=== PATIENT | female | born 1970 | race Caucasian/White ===

== ENCOUNTER 2019-11-09 09:11 | Outpatient (CLI) | payer BC, SELFPAY ==
--- NOTE | ~2019-11-09 | MM_ITS ---
EXAMINATION: MM screening [facility] BI w beau HISTORY: Screening mammogram TECHNIQUE: Craniocaudal and mediolateral oblique 3-D tomosynthesis images were obtained and synthetic 2-D images were generated. CAD analysis was submitted and interpreted. COMPARISON: No prior mammogram is available for comparison at this institution. BREAST PARENCHYMAL COMPOSITION: There are scattered areas of fibroglandular density. FINDINGS: There is no evidence of suspicious mass, calcification, or architectural distortion to sugg est malignancy in either breast. There has been no suspicious interval change. IMPRESSION: 1. No mammographic evidence of malignancy. 2. Recommend routine screening mammography in one year. BI-RADS Category 1: Negative Reviewed, dictated and finalized at location B.
== END 2019-11-09 09:12 | disposition home or self-care (01) ==
PROVIDERS: PCP Physician Assistant; Visit Provider Physician Assistant
DX: Z12.31 Encounter for screening mammogram for malignant neoplasm of breast (principal)
CPT/HCPCS: 77063; 77067

== ENCOUNTER 2021-04-07 07:01 | Outpatient (CLI) | payer BC, SELFPAY ==
--- NOTE | ~2021-04-07 | MM_ITS ---
EXAMINATION: MM screening [facility] BI w beau HISTORY: Screening mammogram TECHNIQUE: Craniocaudal and mediolateral oblique 3-D tomosynthesis images were obtained and synthetic 2-D images were generated. CAD analysis was submitted and interpreted. COMPARISON: 11/09/2019 BREAST PARENCHYMAL COMPOSITION: There are scattered areas of fibroglandular density. FINDINGS: There is no evidence of suspicious mass, calcification, or architectural distortion to sugg est malignancy in either breast. There has been no suspicious interval change. IMPRESSION: 1. No mammographic evidence of malignancy. 2. Recommend routine screening mammography in one year. BI-RADS Category 1: Negative Reviewed, dictated and finalized at location A. STIC DIRECTOR
== END 2021-04-07 07:02 | disposition home or self-care (01) ==
LOC: CHSIMG 07:02
PROVIDERS: PCP Physician Assistant; Visit Provider Surgery Plastic and Reconstructive Surgery
DX: Z12.31 Encounter for screening mammogram for malignant neoplasm of breast (principal)
CPT/HCPCS: 77063; 77067

== ENCOUNTER → 2021-05-09 00:44 | Outpatient (CLI) | payer BC, SELFPAY ==
[2021-05-09 11:57] LABS: SARS-CoV-2 RNA PCR Negative
== END ==
PROVIDERS: PCP Physician Assistant; Visit Provider Surgery Plastic and Reconstructive Surgery
DX: Z01.812 Encounter for preprocedural laboratory examination (principal); Z20.822 Contact with and (suspected) exposure to COVID-19
CPT/HCPCS: C9803; U0003; U0005

== ENCOUNTER 2021-05-12 00:18 | Day surgery (SDC) | payer BC, SELFPAY ==
[2021-05-01 13:53] VITALS: BMI 24.3
--- NOTE | 2021-05-01 14:09 | PC.NURSE ---
Report to the Outpatient Waiting Room, entrance under the green pavilion located off [facility], at time 1100 on date 05/12/21. OR Time: 1300. - You and your visitor will be asked a series of questions to screen for COVID 19 for your protection. - A mask is required within the hospital. One visitor will be allowed to accompany the patient into the hospital. Patients visitor will be instructed to remain with patient at all times or leave the building. We will allow the visitor to come back to the postoperative area when patient is ready. Preoperative COVID Testing Requirements: COVID TEST 05/09 AT 0900 No COVID Test needed if: (proof is required; if not received patient will have Rapid Test prior to entry) - Patient has received COVID Vaccine at least 14 days prior to procedure date or - Patient has positive COVID test result within last 90 days of surgery date. COVID Test needed if above criteria is not met If not COVID vaccinated a COVID test must be conducted within 72 hours of surgery and patient is asked to isolate self from time of testing until procedure. You will go to the [facility] for your COVID testing. The [facility] is located at the corner of [address] [facility]. You will only be called if COVID results are positive and your surgeon may reschedule your elective surgery date. Patients may have clear liquids (water, carbonated beverages, clear teas, apple juice) until 3 hours prior to surgery with a maximum of 20 ounces. - No food from midnight until time of surgery Take the following medications with a SIP of water the morning of surgery: NONE Medications to discontinue per physician: VITAMINS/SUPPLEMENTS Date to take last dose: 05/08/21 Please no make-up, nail hungarian, hairspray, perfume, deodorant, or body powder the day of surgery. No jewelry (including any body piercings) or valuables the day of surgery, leave them at home. Please take a shower or bath the night before, or the morning of, surgery with an antibacterial soap. Wear comfortable, loose fitting clothing. Children are encouraged to wear pajamas. - Jewelry must be removed prior to entering the operating room. Rings and piercings that are not removed may be cut off. - The hospital will not accept responsibility for valuables. - Please leave all valuables, including medications, at home the day of surgery. If you are going home after surgery, a licensed milk delivery driver must drive you home. - NO public transportation without another adult. - We recommend that an adult stay with you for 24 hours following discharge. - We also recommend that you do not drive, make important decision, drink alcoholic beverages, or take any drugs that were not prescribed by your health care provider for at least 24 hours after your discharge time. Follow any additional instructions given to you from your surgeon. Telephone instructions given to MILTON DO and asked if any additional questions and then verbalized understanding. Patient advised to call surgeon office or pre surgery nurse liaison [phone] if any additional questions.
[2021-05-12] VITALS (8 sets, daily range): BP systolic 118–140; BP diastolic 67–79; PULSE 58–72; RESP 12–20; TEMP 36.3–36.7; O2SAT 97–100
[2021-05-12 11:42] LABS: Urine Cotinine NEGATIVE
[2021-05-12] MEDS: LACTATED RINGERS 1,000 ML 30 ML IV CONT ×2 (11:43→15:07)
--- NOTE | 2021-05-12 11:45 | WPDANESEPPF ---
Anes - Initial Pre Proc Eval Procedure: Operation Date: 05/12/21 13:00 Proposed Procedures p Bilateral Breast Reduction - Edwardo Rangel MD Date/Time: 05/12/21 11:45 Surgeon: Edwardo Rangel MD Pre Op Diagnosis: macromastia Patient Data Age: 50 Gender: F Height: 1.7 m Weight: 70.31 kg Allergies Allergy/AdvReac Type Severity Reaction Status Date / Time No Known Allergies Allergy Unknown Unverified 05/01/21 13:51 Home Medications Medication Instructions Recorded Confirmed Type cetirizine [Zyrtec] 10 mg PO DAILY 05/01/21 05/01/21 History fluoxetine 20 mg PO HS 05/01/21 05/01/21 History hydrochlorothiazide 12.5 mg PO DAILY 05/01/21 05/01/21 History lactobacillus combo no.11 1 cap PO DAILY 05/01/21 05/01/21 History [Probiotic] vitamin B complex [Complex B-100] 1 tablet PO DAILY 05/01/21 05/01/21 History docusate sodium 100 mg capsule 100 mg PO DAILY #14 cap 05/05/21 Rx hydrocodone 5 mg-acetaminophen 325 1 tablet PO Q6H PRN #30 tablet 05/05/21 05/05/21 Rx mg tablet ondansetron 4 mg disintegrating 4 mg PO Q8H #21 tablet 05/05/21 Rx tablet Laboratory Tests 05/12/21 11:12 Cotinine Negative Patient hx anesthesia problems: none Family hx anesthesia problems: none Results Review: All pre-operative results and documents have been reviewed as part of the pre-operative evaluation. [facility] Past Medical History Medical History Anxiety Headache, migraine Social History Social History Smoking status: Never smoker Alcohol intake: current Alcohol use details: 3/MONTH Substance use: never Substance use type: does not use Living arrangements: with family Additional living arrangements comments: DAUGHTER Spiritual care concerns: No Anes - Eval Final PreProcedure Day of Procedure 05/12/21 11:45 Patient weight: normal Heart: regular rate and rhythm Lungs: clear to auscultation Airway: Mallampati scale class II Neurological: alert and oriented Last oral intake: >/= 8 hours ASA classification: II Emergent: no Anesthetic plan: proceed Anesthesia type and monitoring: general LMA and standard monitoring Results Review: All pre-operative results and documents have been reviewed as part of the pre-operative evaluation. Informed Consent: The patient's anesthetic plan and its attendant risks and benefits were discussed with the patient/family/POA. Questions were solicited and answers provided to the satisfaction of the patient/family/POA.
[2021-05-12] MEDS: TRANEXAMIC ACID 1,000MG/ISO100 1,000 MG/100 ML BAG 200 MG IVPB (12:14)
--- NOTE | 2021-05-12 12:37 | P.OP_ITS ---
Procedure Note - Detailed Date of Procedure 05/12/21 Pre-op Diagnosis macromastia Post-op Diagnosis Same Procedure Performed Bilateral reduction mammaplasty Surgeon Edwardo Rangel MD Anesthesia General Findings Inverted T Superior medial pedicle Tissue removed: Right: 654 grams Left 690 grams Description of Procedure She is here today for bilateral breast reduction. Previously and again today the risks, benefits, alternatives were discussed in extensive detail. I wanted her to be very realistic about the risks involved as well as expectations. We discussed aftercare and what to monitor for. She understands we can never guarantee final breast size and there will always be asymmetry. I was very upfront and honest about the risks of sensation change and even nipple loss (). Made sure answered all of her questions to her satisfaction today and consent was obtained. She was marked in the preoperative holding area with their verification. The patient was taken to the operating room placed supine on the operating table. Anesthesia was provided by anesthesiology. She was prepped and draped in a standard sterile fashion. A surgical time-out was taken. Stab incisions were made and I tumessed with a tumescent solution. I marked out the nipple-areolar complex at 42 mm. I then de-epithelialized the pedicle. The pedicle was well left well more than 2 cm in thickness. I then removed the inferior portion of the breast as well as the central keel to get shape based on preoperative planning. At this point copiously irrigated with saline solution and verified a strict hemostasis. I reapproximated the pillars using a 2-0 PDS. I tailor tacked the breast into place with jai. She was placed in a sitting position. I verified the nipple-areolar complex position based on preoperative markings, intraoperative measurements, and observation which were in full agreement. This nipple-areolar complex was marked at 42 mm in size. I then placed supine and de-epithelialized this. Nipple-areolar complex was inset with 3-0 Monocryl. I closed IMF deep with 1 strattafix. I closed the vertical incision with 3-0 Monocryl in the IMF with 3- 0 stratafix. Then everything was closed using a running subcuticular 4-0 Monocryl followed by Steri-Strips. A dressing was placed followed by surgical bra. Patient was awoke and taken to PACU without difficulty. All instrument sponge counts were correct at the end of the case. Estimated Blood Loss 50 Drains No Packing No Pathology Yes (Bilateral breast tissue) Complications No immediate complications Condition Stable Disposition PACU
--- NOTE | 2021-05-12 12:57 | WPDHPUPDATE1 ---
History and Physical Update Update Date/Time: 05/12/21 12:57 History and Physical has been reviewed, including an updated exam of the patient. There are NO changes in the patient's condition. Risks, benefits, and alternatives have been discussed and questions answered. Patient agrees to proceed with procedure.
[2021-05-12] MEDS: ceFAZolin 2 GM/D5W 50 ML 2 GM/50 ML BAG IVPB (13:03)
[2021-05-12] MEDS: LACTATED RINGERS IRRIG 1,000 ML, LIDOCAINE HCL 1% LOCAL INJ 50 ML, EPINEPHrine HCL INJ ... INFILTRATE (13:21)
--- NOTE | 2021-05-12 15:09 | SUR.OPER ---
left inner ear earring intact to PACU.
[2021-05-12] MEDS: fentaNYL CITRATE INJ (*CRX) 100 MCG/2 ML VIAL 25 MCG IV PUSH ×2 (15:22→15:26)
[2021-05-12] MEDS: oxyCODONE HCL (*CRX) 5 MG TAB IR PO (16:07)
== END 2021-05-12 16:47 | disposition home or self-care (01) ==
PROVIDERS: PCP Physician Assistant; Visit Provider Surgery Plastic and Reconstructive Surgery
PROC: 0HBV0ZZ Excision of Bilateral Breast, Open Approach (ICD-10-PCS; CPT 19318; principal; 2021-05-12 13:00)
DX: N62 Hypertrophy of breast (principal); F41.9 Anxiety disorder, unspecified; Z82.49 Family history of ischemic heart disease and other diseases of the circulatory system; M54.9 Dorsalgia, unspecified; M54.2 Cervicalgia; M25.511 Pain in right shoulder; L98.9 Disorder of the skin and subcutaneous tissue, unspecified; N64.4 Mastodynia; G43.909 Migraine, unspecified, not intractable, without status migrainosus
CPT/HCPCS: 19318; 80307; 88305; A9270; J0171; J0690; J1100; J1170; J2250; J2405; J2704; J3010; J7120

== ENCOUNTER 2022-11-11 08:08 | Outpatient (CLI) | payer BC, SELFPAY ==
--- NOTE | ~2022-11-11 | MM_ITS ---
EXAMINATION: MM screening [facility] HISTORY: Screening mammogram TECHNIQUE: Craniocaudal and mediolateral oblique 3-D tomosynthesis images were obtained and synthetic 2-D images were generated. CAD analysis was submitted and interpreted. COMPARISON: 04/07/2021, 11/09/2019 BREAST PARENCHYMAL COMPOSITION: The breasts are almost entirely fatty. FINDINGS: There has been interval reduction mammoplasty. No suspicious mass, calcification, or helena ectural distortion are identified in either breast to suggest malignancy. There has been no suspiciou s interval change. IMPRESSION: 1. No mammographic evidence of malignancy. 2. Recommend routine screening mammography in one year. BI-RADS Category 1: Negative Reviewed, dictated and finalized at location A.
== END 2022-11-11 08:09 | disposition home or self-care (01) ==
LOC: CHSIMG 08:10
PROVIDERS: PCP Physician Assistant; Visit Provider Physician Assistant
DX: Z12.31 Encounter for screening mammogram for malignant neoplasm of breast (principal)
CPT/HCPCS: 77063; 77067

== ENCOUNTER 2024-06-15 09:00 | Outpatient (CLI) | payer BC, SELFPAY ==
--- NOTE | ~2024-06-15 | MM_ITS ---
EXAMINATION: MM diagnostic belle BI w beau HISTORY: Breast pain TECHNIQUE: Additional 3-D tomosynthesis images of the breasts were performed and synthetic 2-D images were generated. CAD analysis was submitted and interpreted. COMPARISON: Comparison to multiple prior studies sequentially, with oldest reviewed study dated 03/2019. BREAST PARENCHYMAL COMPOSITION: Not dense: There are scattered areas of fibroglandular density. FINDINGS: The breasts are stable. No new masses, calcifications or architectural distortion in either breast to suggest malignancy . IMPRESSION: 1. No mammographic evidence for malignancy in either breast. 2. Routine yearly screening mammogram and regular clinical breast examination are recommended. BI-RADS Category 1: Negative Reviewed, dictated and finalized at location A. IMPRESSION: 1. No mammographic evidence for malignancy in either breast. 2. Routine yearly screening mammogram and regular clinical breast examination a re recommended. BI-RADS Category 1: Negative
--- OUTSIDE RECORDS SUMMARY | 2024-06-15 09:08 | XMS_ITS | Clinical Summary ---
Author Organization [facility] Address [address] [place] [address] Care Team Providers Care Night Coordinator Name Role Phone Fiona Gerardo Primary Care Pr ovider Source Comments [facility],non-owned Affiliates and Associated Physician Practices is amultiple site organization consisting of ambulatory clinics and hospital sitesin [place], [place], [place] and [place]. This disclosure is being madepursuant to the Care Everywhere program and may not contain all information available regarding this patient. 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 Gender Identity Not on file Sexual Orientation Not on file Plan of Treatment Health Maintenance Due Date Last Done Comments COLOGUARD (AGES 45-75) - COL ON CA SCREENING 1970 COLON MONITORING 1970 COLONOSCOPY - COLON CA SCREENING 1970 CT COLONOGRAPHY - COLON CA SCREENING 1970 Colorectal Cancer Screening 1970 FIT - COLON CA SCREENING 1970 FLEX SIG - COLON CA SCREENING 1970 LIPID TESTING 1970 MAMMOGRAM 1970 HIV SCREENING 1985 HEPATITIS C SCREENING 09/05/1988 DTAP/TDAP/TD VACCINES (1 - Tdap) 1989 HEPATITIS B VACCINE (1 of 3 - 19+ 3-dose series) 1989 PNEUMOCOCCAL VACCINE 50+ (1 of 1 - PCV) 2020 ZOSTER VACCINE (1 of 2) 2020 COVID-19 VACCINE (2023-2 5 season) 2023 DEPRESSION SCREENING 02/08/2024 INFLUENZA VACCINE (Season Ended) 2024 HIB VACCINE Aged Out No longer eligi ble based on patient's age to complete this topic HPV VACCINE Aged Out No longer eligi ble based on patient's age to complete this topic MENINGOCOCCAL (Group B) VACC INE SHARED DECISION-MAKING Aged Out No longer eligibl e based on patient's age to complete this topic MENINGOCOCCAL GROUPS A/C/Y/W VACCINE Aged Out No longer eligible b ased on patient's age to complete this topic Care Teams Night Coordinator Relationship Specialty Start Date End Date Fiona Gerardo PA [address] [place] [id number] PCP - General 05/15/21
--- OUTSIDE RECORDS SUMMARY | 2024-06-15 09:08 | XMS_ITS | Data Portability ---
Author Organization [facility], Main Office Address [address] [place] [address] Assessment No assessment recorded. Plan of Treatment Reminders Order Date Submit Date Provider Last Modified By Organization Details Last Modified Time Details Appointments None recorded. Lab lipid panel, serum 2022 023 SUJIT Not available 3 06:17:05 CBC w/ auto diff 2022 023 SUJIT Not available 3 06:17:08 CMP, serum or plasma 2022 023 SUJIT Not available 3 06:17:06 TSH + free T4, serum 2022 023 [email or web address] Not available 4 09:41:09 vitamin B12 + folate, serum or blood 2022 023 SUJIT Not available 3 06:17:09 HbA1c (hemoglobin A1c), blood 2022 023 SUJIT Not available 3 06:17:07 Referral None recorded. Procedures colonoscopy screening (PROC) 2022 023 [email or web address] [facility] Gastroenterol [facility]gy, [address], [address], [address], 4 09:41:16 Surgeries None recorded. Imaging MAMMO, screening, digital, bilateral 2022 023 [facility] (Imaging), [address] [place] [address], [address], 3 13:49:55 Medication Orders None recorded. Patient TargetsNo targets recorded. Patient InstructionsNo instructions recorded. Reason for Referral None Reported. Results Created Date Observation Date Name Description Value Unit Range Abnormal Flag Note LastModifiedBy Organization Detail LastModifiedTime 01/29/2001/29/2023 LIPID PANEL , STAND CHAD cholesterol, total 178 mg/dL <200 normal Not Available [facility] [address] [address] [place], [address], 01/29/2023 06:17:05 01/29/2001/29/2023 LIPID PANEL , STAND CHAD HDL cholesterol 51 mg/dL > or = 50 normal Not Available [facility] [address] [address] [place], [address], 01/29/2023 06:17:05 01/29/2001/29/2023 LIPID PANEL , STAND CHAD triglyceride s 82 mg/dL <150 normal Not Available [facility] [address] [address] [place], [address], 01/29/2023 06:17:05 01/29/20 23 01/29/2023 LIPID PANEL , STAND CHAD LDL-choleste rol 110 mg/dL _(julia c) high Refer ence range : <100 Sulaiman able range <100 mg/dL for prima ry preve ntion ; <70 mg/dL for patie nts with CHD or diabe tic patie nts with > or = 2 CHD risk facto rs. LDL-C is now calcu lated using the Glendy n-Hop kins shaheen roberson n, which is a valid ated novel mike knox accur acy than the Fried rani equat ion in the estim ation of LDL-C . Glendy macdonald SS et al. ASHLEY. 2013; 310(1 9): 2061- 2068 (http ://ed ucati on.Qu Holly [employer] tics. com/f aq/FA Q164) Not Available [facility] [address] [place], [address], 01/29/2023 06:17:05 01/29/20 23 01/29/2023 LIPID PANEL , STAND CHAD chol/HDLC ratio 3.5 (calc ) <5.0 normal Not Available [address] [address] [place], [address], 01/29/2023 06:17:05 01/29/2001/29/2023 LIPID PANEL , STAND CHAD non HDL cholesterol 127 mg/dL _(julia c) <130 normal For patie nts with diabe keenan plus 1 major ASCVD risk facto r, treat ing to a non-H DL-C goal of <100 mg/dL (LDL- C of <70 mg/dL ) is consi dered a thera peuti c optio n. Not Available [address] [address] [place], [address], 01/29/2023 06:17:05 01/29/2001/29/2023 COMPR EHENS HARRISON METAB OLIC PANEL glucose 91 mg/dL 65-99 normal Fasti ng refer ence inter saadia Not Available [address] [address] [place], [address], 01/29/2023 06:17:06 01/29/2001/29/2023 COMPR EHENS HARRISON METAB OLIC PANEL urea nitrogen (BUN) 14 mg/dL 7-25 normal Not Available [address] [address] [place], [address], 01/29/2023 06:17:06 01/29/2001/29/2023 COMPR EHENS HARRISON METAB OLIC PANEL creatinine 0.74 mg/dL 0.50-1 .03 normal Not Available [address] [address] [place], [address], 01/29/2023 06:17:06 01/29/2001/29/2023 COMPR EHENS HARRISON METAB OLIC PANEL eGFR 97 mL/mi n/1.7 3m2 > or = 60 normal Not Available [address] [address] [place], [address], 01/29/2023 06:17:06 01/29/20 23 01/29/2023 COMPR EHENS HARRISON METAB OLIC PANEL BUN/creatini ne ratio SEE NOTE: (calc ) 6-22 Not Repor gio: BUN and Creat inine are withi n refer ence range . Not Available [address] [address] [place], [address], 01/29/2023 06:17:06 01/29/20 23 01/29/2023 COMPR EHENS HARRISON METAB OLIC PANEL sodium 140 mmol/ L 135-14 6 normal Not Available [address] [address] [place], [address], 01/29/2023 06:17:06 01/29/2001/29/2023 COMPR EHENS HARRISON METAB OLIC PANEL potassium 4.4 mmol/ L 3.5-5. 3 normal Not Available [address] [address] [place], [address], 01/29/2023 06:17:06 01/29/20 23 01/29/2023 COMPR EHENS HARRISON METAB OLIC PANEL chloride 107 mmol/ L 98-110 normal Not Available [address], [address], 01/29/2023 06:17:06 01/29/20 23 01/29/2023 COMPR EHENS HARRISON METAB OLIC PANEL carbon dioxide 25 mmol/ L 20-32 normal Not Available [address] [address] [place], [address], 01/29/2023 06:17:06 01/29/20 23 01/29/2023 COMPR EHENS HARRISON METAB OLIC PANEL calcium 8.9 mg/dL 8.6-10 .4 normal Not Available [address] [address] [place], [address], 01/29/2023 06:17:06 01/29/20 23 01/29/2023 COMPR EHENS HARRISON METAB OLIC PANEL protein, total 6.5 g/dL 6.1-8. 1 normal Not Available [address] [address] [place], [address], 01/29/2023 06:17:06 01/29/20 23 01/29/2023 COMPR EHENS HARRISON METAB OLIC PANEL albumin 3.8 g/dL 3.6-5. 1 normal Not Available [address], [address], 01/29/2023 06:17:06 01/29/20 23 01/29/2023 COMPR EHENS HARRISON METAB OLIC PANEL globulin 2.7 g/dL_ (calc ) 1.9-3. 7 normal Not Available [address] [address] [place], [address], 01/29/2023 06:17:06 01/29/20 23 01/29/2023 COMPR EHENS HARRISON METAB OLIC PANEL albumin/glob ulin ratio 1.4 (calc ) 1.0-2. 5 normal Not Available [address] [address] [place], [address], 01/29/2023 06:17:06 01/29/20 23 01/29/2023 COMPR EHENS HARRISON METAB OLIC PANEL bilirubin, total 0.3 mg/dL 0.2-1. 2 normal Not Available [address] [address] [place], [address], 01/29/2023 06:17:06 01/29/2001/29/2023 COMPR EHENS HARRISON METAB OLIC PANEL alkaline phosphatase 77 U/L 37-153 normal Not Available [facility] [address] [address] [place], [address], 01/29/2023 06:17:06 01/29/20 23 01/29/2023 COMPR EHENS HARRISON METAB OLIC PANEL AST 16 U/L 10-35 normal Not Available [address], [address], 01/29/2023 06:17:06 01/29/20 23 01/29/2023 COMPR EHENS HARRISON METAB OLIC PANEL ALT 18 U/L 6-29 normal Not Available [facility] [address] [place], [address], 01/29/2023 06:17:06 01/29/20 23 01/29/2023 HEMOG LOBIN A1C hemoglobin A1C 5.4 %_of_ total _HGB <5.7 normal For the purpo se of scree rosaline for the prese nce of diabe keenan: <5.7% Consi stent with the absen ce of diabe keenan 5.7-6 .4% Consi stent with incre ased risk for diabe keenan (pred iabet es) > or =6.5% Consi stent with diabe keenan This assay resul t is consi stent with a decre ased risk of diabe keenan. Curre ntly, no conse nsus exist s fredy delacruz use of hemog lobin A1c for diagn osis of diabe keenan in child siria. Accor ding to Ameri can Diabe keenan Assoc iatio n (ADA) guide lines , hemog lobin A1c <7.0% repre sents optim al contr ol in non-p regna nt diabe tic patie nts. Diffe rent metri cs may apply to speci fic patie nt popul ation s. Stand ards of Medic al Care in Diabe keenan(A DA). Not Available [facility] [address] [address], [place], [address], 01/29/2023 06:17:07 01/29/20 23 01/29/2023 TSH W/REF ELMO TO FT4 TSH w/reflex to FT4 1.49 mIU/L normal Refer ence Range > or = 20 Years 0.40- 4.50 Pregn raine Range s First trime ster 0.26- 2.66 Secon d trime ster 0.55- 2.73 Third trime ster 0.43- 2.91 Not Available [facility] [address] [place], [address], 01/29/2023 06:17:08 01/29/2001/29/2023 CBC (INCL UDES DIFF/ PLT) white blood cell count 4.9 thous and/u L 3.8-10 .8 normal Not Available [address], [address], 01/29/2023 06:17:08 01/29/2001/29/2023 CBC (INCL UDES DIFF/ PLT) red blood cell count 4.31 joel on/uL 3.80-5 .10 normal Not Available [address], [address], 01/29/2023 06:17:08 01/29/2001/29/2023 CBC (INCL UDES DIFF/ PLT) hemoglobin 12.0 g/dL 11.7-1 5.5 normal Not Available [address], [address], 01/29/2023 06:17:08 01/29/2001/29/2023 CBC (INCL UDES DIFF/ PLT) hematocrit 37.1 % 35.0-4 5.0 normal Not Available [address], [address], 01/29/2023 06:17:08 01/29/2001/29/2023 CBC (INCL UDES DIFF/ PLT) MCV 86.1 fL 80.0-1 00.0 normal Not Available [address], [address], 01/29/2023 06:17:08 01/29/2001/29/2023 CBC (INCL UDES DIFF/ PLT) MCH 27.8 pg 27.0-3 3.0 normal Not Available [address], [address], 01/29/2023 06:17:08 01/29/20 23 01/29/2023 CBC (INCL UDES DIFF/ PLT) MCHC 32.3 g/dL 32.0-3 6.0 normal Not Available [address], [address], 01/29/2023 06:17:08 01/29/20 23 01/29/2023 CBC (INCL UDES DIFF/ PLT) RDW 13.9 % 11.0-1 5.0 normal Not Available [address], [address], 01/29/2023 06:17:08 01/29/2001/29/2023 CBC (INCL UDES DIFF/ PLT) platelet count 359 thous and/u L 140-40 0 normal Not Available [address], [address], 01/29/2023 06:17:08 01/29/2001/29/2023 CBC (INCL UDES DIFF/ PLT) MPV 11.5 fL 7.5-12 .5 normal Not Available [address], [address], 01/29/2023 06:17:08 01/29/20 23 01/29/2023 CBC (INCL UDES DIFF/ PLT) absolute neutrophils 3023 cells /uL 1500-7 800 normal Not Available [address], [address], 01/29/2023 06:17:08 01/29/20 23 01/29/2023 CBC (INCL UDES DIFF/ PLT) absolute lymphocytes 1357 cells /uL 850-39 00 normal Not Available [address], [address], 01/29/2023 06:17:08 01/29/20 23 01/29/2023 CBC (INCL UDES DIFF/ PLT) absolute monocytes 412 cells /uL 200-95 0 normal Not Available [address], [address], 01/29/2023 06:17:08 01/29/20 23 01/29/2023 CBC (INCL UDES DIFF/ PLT) absolute eosinophils 69 cells /uL 15-500 normal Not Available [address], [address], 01/29/2023 06:17:08 01/29/2001/29/2023 CBC (INCL UDES DIFF/ PLT) absolute basophils 39 cells /uL 0-200 normal Not Available [address], [address], 01/29/2023 06:17:08 01/29/2001/29/2023 CBC (INCL UDES DIFF/ PLT) neutrophils 61.7 % normal Not Available [address], [address], 01/29/2023 06:17:08 01/29/2001/29/2023 CBC (INCL UDES DIFF/ PLT) lymphocytes 27.7 % normal Not Available [address], [address], 01/29/2023 06:17:08 01/29/20 23 01/29/2023 CBC (INCL UDES DIFF/ PLT) monocytes 8.4 % normal Not Available [address], [address], 01/29/2023 06:17:08 01/29/20 23 01/29/2023 CBC (INCL UDES DIFF/ PLT) eosinophils 1.4 % normal Not Available [address], [address], 01/29/2023 06:17:08 01/29/20 23 01/29/2023 CBC (INCL UDES DIFF/ PLT) basophils 0.8 % normal Not Available [address], [address], 01/29/2023 06:17:08 01/29/20 23 01/29/2023 VITAM IN B12/F OLATE , SERUM PANEL vitamin B12 598 pg/mL 200-11 00 normal Not Available [facility] [address] [place], [address], 01/29/2023 06:17:09 01/29/20 23 01/29/2023 VITAM IN B12/F OLATE , SERUM PANEL folate, serum 20.1 NG/mL normal Refer ence Range Low: <3.4 Borde rline : 3.4-5 .4 Leti l: >5.4 Not Available [facility] [address] [address] , [place], [address], 01/29/2023 06:17:09 04/11/19 22 04/07/2021 MAMMO irineo, digit al, bilat eral No observ ation record ed. [id number] [facility]) [address] [place], [address], 04/07/2022 19:37:12 11/12/1911/11/2022 MAMMO , irineo waggoner, digit al, bilat eral No observ ation record ed. [email or web address] [facility] [address] [place], [address], 02/08/2023 17:39:12 Result Notes None recorded. Problems Name Problem SNOMED Code Status Onset Date Resolution Date Notes Provider Name and Address Organization Details Recorded Time Benign essential hypertension 1820688 Active 2021 Not Available [facility] 3 19:34:57 Acute sinusitis 65440899 Active 2021 Not Available [facility] 3 19:34:57 Mixed anxiety and depressive disorder 268170975 Active 2018 Not Available [facility] 3 19:34:57 Seasonal allergic rhinitis 642876800 Active 2017 Not Available [facility] 3 19:34:57 Migraine 57598879 Active 2021 Not Available [facility] 3 19:34:57 Fatigue 83478882 Active 2021 Not Available [facility] 19:34:57 Problem Notes None recorded. Procedures Surgical History Date Name Laterality Status Provider Name and Address Organization Details Recorded Time 07/23/19 16 Date of Last Colonoscopy completed Not Available [facility] 04/07/2022 19:33:20 09/22/19 GENERAL PEDIATRICIAN Surgery completed Not Available [facility] 04/08/19 19:33:21 09/22/19 GENERAL PEDIATRICIAN Surgery completed Not Available [facility] 04/08/19 19:33:21 Imaging Results Imaging Date Name Status LastModified by Organiz ation Details LastModified Time 04/07/2021 MAMMO, screening, digital, bilateral completed [id number] [facility]) [address] [place], [address], 04/07/2022 19:37:12 11/11/2022 MAMMO, screening, digital, bilateral completed [email or web address] [facility] [address] [place], [address], 02/08/2023 17:39:12 Procedure Notes None recorded. Medical Equipment None Reported. Allergies No known drug allergies Medications Name Sig Start Date Stop Date Status Note LastModified by Organization Details LastModified Time valacyclovi r 1 gram tablet TAKE 1 TABLET BY MOUTH THREE TIMES DAILY FOR 10 DAYS active Not Available Not Available No t Available sumatriptan 100 mg tablet TAKE ONE TABLET BY MOUTH AT ONSET OF MIGRAINE, MAY REPEAT IN ONE HOUR. MAX DOSE OF 2 TABLETS/2 4HOURS 10/05 completed Not Available Not Available Not Available hydrocodone 5 mg-acetamin ophen 325 mg tablet 06/24 completed Not Available Not Available Not Available amlodipine 5 mg tablet Take 1 tablet every day by oral route. active Not Available Not Available No t Available sulfamethox azole 800 mg-trimetho prim 160 mg tablet 03/07 completed Not Available Not Available Not Available Imitrex 50 mg tablet take one tab po at onset of migraine, may repeat after 1 hour if needed. max 100mg/day 12/06 completed Not Available Not Available Not Available amoxicillin 875 mg tablet Take 1 tablet every 12 hours by oral route. active Not Available Not Available No t Available alprazolam 0.25 mg tablet TAKE 1 TABLET BY MOUTH DAILY NEEDED active Not Available Not Available No t Available linezolid 600 mg tablet 03/08 completed Not Available Not Available Not Available fluoxetine 10 mg capsule TAKE ONE CAPSULE BY MOUTH EVERY DAY 07/23 completed Not Available Not Available Not Available methylpredn isolone 4 mg tablets in a dose pack take as directed 07/12 completed Not Available Not Available Not Available ondansetron 4 mg disintegrat ing tablet 10/04 completed Not Available Not Available Not Available fluoxetine 20 mg capsule TAKE 1 CAPSULE BY MOUTH DAILY active Not Available Not Available No t Available amoxicillin 875 mg-potalexandre m clavulanate 125 mg tablet 03/07 completed Not Available Not Available Not Available bupropion HCl XL 150 mg 24 hr tablet, extended release Take 1 tablet every day by oral route in the morning. 05/16 completed Not Available Not Available Not Available hydrochloro thiazide 12.5 mg tablet TAKE 1 TABLET BY MOUTH DAILY active Not Available Not Available No t Available Reyvow 100 mg tablet Take 1 tablet every day by oral route as needed. 06/24 completed Not Available Not Available Not Available Vitals Date Recorded Body mass index (BMI) Body height Oxygen saturation Oxygen saturation in Arterial blood by Pulse oximetry Heart rate Body temperature Body weight Systolic blood pressure Diastolic blood pressure Systolic blood pressure Diastolic blood pressure Provider Name and Address Organization Details Last Updated DateTime 1 26.7 kg/m2 170.18 cm 98 % 98 % 82 /min 98.2 [degF] 35496.1 4 g 130 mm[Hg] 90 mm[Hg] 130 mm[Hg] 82 mm[Hg] Not Available [facility] 3 19:34:36 Date Recorded Body mass index (BMI) Body height Oxygen saturation Oxygen saturation in Arterial blood by Pulse oximetry Heart rate Body temperature Body weight Systolic blood pressure Diastolic blood pressure Provider Name and Address Organization Details Last Updated DateTime 1 26.9 kg/m2 170.18 cm 98 % 98 % 112 /min 98.6 [degF] 70873.4 5 g 120 mm[Hg] 80 mm[Hg] Not Available [facility] 3 19:34:37 Date Recorded Body mass index (BMI) Body height Oxygen saturation Oxygen saturation in Arterial blood by Pulse oximetry Heart rate Respiratory rate Body temperature Body weight Systolic blood pressure Diastolic blood pressure Provider Name and Address Organization Details Last Updated DateTime 2 25.7 kg/m2 170.18 cm 98 % 98 % 120 /min 16 /min 98.6 [degF] 58538.1 5 g 122 mm[Hg] 78 mm[Hg] Not Available [facility] 3 19:34:37 Date Recorded Body height Body mass index (BMI) Body weight Body temperature Respiratory rate Oxygen saturation Oxygen saturation in Arterial blood by Pulse oximetry Heart rate Systolic blood pressure Diastolic blood pressure Provider Name and Address Organization Details Last Updated DateTime 3 170.18 cm 28.2 kg/m2 20403.6 3 g 98.4 [degF] 16 /min 98 % 98 % 89 /min 140 mm[Hg] 80 mm[Hg] DONN Huffman [employer] 3 15:03:34 Date Recorded Systolic blood pressure Diastolic blood pressure Provider Name and Address Organization Details Last Updated DateTime 10/05/2022 130 mm[Hg] 80 mm[Hg] PATRICIA Mobley [address] [address], [place], [address], [employer] 10/05/2022 15:26:41 Social History Question Answer Notes LastModified by Organizat ion Details LastModified Time Tobacco Smoking Status Never Smoker Not Available [facility] 04/07/2022 19:33:17 What Is Your Level Of Alcohol Consumption? Occasional [id number] Information not available 04/07/2022 What Is Your Level Of Caffeine Consumption? Moderate [id number].[id number] Information not available 04/07/2022 How Much Tobacco Do You Chew? None [id number] Information not available 04/07/2022 In The 14 Days Before Symptom Onset, Have You Had Close Contact With A Laboratory-confir med COVID-19 While That Case Was Ill? No [id number] Information not available 04/07/2022 In The 14 Days Before Symptom Onset, Have You Had Close Contact With A Person Who Is Under Investigation For COVID-19 While That Person Was Ill? No [id number] Information not available 04/07/2022 Are You Currently Employed? Yes [email or web address] Information not available 10/04/2022 What Type Of Diet Are You Following? REGULAR [id number].[id number] Information not available 04/07/2022 Which Illicit Or Recreational Drugs Have You Used? None [id number] Information not available 04/07/2022 Do You Or Have You Ever Used E-cigarettes Or Vape? Never Used Electronic Cigarettes [id number] Information not available 04/07/2022 What Is Your Occupation? RN [id number] Information not available 04/07/2022 Have There Been Any Changes To Your Family Or Social Situation? No [id number] Information not available 04/07/2022 Do You Use Insect Repellent Routinely? No MIGRATION.[id number] Information not available 04/07/2022 What Is Your Relationship Status? Single MIGRATION.[id number] Information not available 04/07/2022 Do You Use Your Seat Belt Or Car Seat Routinely? Yes MIGRATION.[id number] 9578 Information not available 04/07/2022 Do You Have Smoke And Carbon Monoxide Detectors In Your Home? Yes [id number].[id number] 4541 Information not available 04/07/2022 Do You Or Have You Ever Used Smokeless Tobacco? Never Used Smokeless Tobacco MIGRATION.[id number] 8057 Information not available 04/07/2022 How Much Tobacco Do You Smoke? No MIGRATION.856463 7052 Information not available 04/07/2022 Do You Use Any Illicit Or Recreational Drugs? No MIGRATION.[id number] 8761 Information not available 04/07/2022 Do You Use Sunscreen Routinely? Yes MIGRATION.[id number] 1605 Information not available 04/07/2022 Have You Recently Traveled Abroad? No MIGRATION.[id number] 9717 Information not available 04/07/2022 Do You Have Any Dietary Restrictions? No MIGRATION.377120 6249 Information not available 04/07/2022 Do You Or Have You Ever Used Any Other Forms Of Tobacco Or Nicotine? No MIGRATION.036243 5038 Information not available 04/07/2022 Sex: Unknown Functional Status Question Answer Note LastModified by Organizat ion Details LastModified Time What is your exercise level? Moderate [id number] Information not available 04/07/2022 Mental Status None recorded. Family History Relationship Description Onset Age of this Age Resolved Age Notes LastModified by Organization Details LastModified Time Mother Essential hypertension [id number] Not available 04/07/2022 19:33:21 Mother Cerebrovascu lar accident [id number] Not available 04/07/2022 19:33:21 Paternal Grandfather Hyperlipidem ia [id number] Not available 04/07/2022 19:33:21 Medical History No medical history recorded. Gynecological History Statement/Question Response Abnormal Pap N Date of Last Pap 10/22/2016 Date of Last Mammogram 04/07/2021 Date of Last Colonoscopy 07/23/2015 Obstetrics History GPAL:G 2 P 0 0 0 1 Type Value Living 1 Total 2 Past Encounters Encounter ID Performer Location Encounter Start Date Encounter Closed Date Diagnosis/Indication Diagnosis SNOMED-CT Code Diagnosis ICD10 Code Diagnosis Note [id number] PATRICIA Mobley [facility] [place] [address] [place] [address] 08/20/2020 00:00:00 09/05/2020 17:28:03 [id number] PATRICIA Mobley [facility] [place] [address] [place] [address] 12/10/2020 00:00:00 01/04/2021 22:37:30 [id number] Aleksandar Gary MD [facility] [place] [address] [place] [address] 06/24/2021 00:00:00 07/06/2021 21:37:45 [id number] PATRICIA Mobley [facility] [place] [address] [place] [address] 10/05/2022 14:57:52 10/05/2022 15:35:37 Adult health examination 694728023 Z00.01 wellness exam completed Benign ess ential hypertension 6979969 I10 stable on amlodipine 5mg daily and HCTZ 12.5mg daily. Mixed anxi ety and depressive disorder 306634210 F41.8 stable on fluoxetine 20mg daily. Migraine 45404433 G43.90 9 very stable, less frequent at this time Long-term drug therapy 142542254 Z79.899 all annual labs are due Cholesterol screening 27 8637635 Z13.220 Diabetes m ellitus screening 326921053 Z13.1 Screening mammography 24 259525 Z12.31 mammogram due . hx of breast reduction. Screening for malignant neoplasm of colon 989407214 Z12.11 colonoscop y ordered again Health Concerns Section Related Observation LastModified by Organization Detai ls LastModified Time None Recorded Concern Status LastModified by Organization Details LastModified Time None Recorded Advance Directives Directive None Recorded Payers Encounter Date Sequence Insurance Name Policy Number Policy Michelle Covered Member ID Michelle Member ID Guarantor Name 10/05/2022 1 [facility] [place] [id number] Nancy Cortes [id number] Nancy Cortes Notes Date Note Type Note Provider Name and Address Organization Details Recorded Time 021 text/ht ml HypertensionReported bypatient.Quality:dizzy Severity:mild Duration:1 month Onset/Timing:abrupt onset Context:exertion;at rest;wakes up from sleep Self Care:under emotional stressNotes:Highest was 160/90, staying at 138.86 Not Available [employer] 09/05/2020 17:28:03 021 text/ht ml Anxiety/DepressionReported bypatient.Severity:denies suicidal ideations; able to maintain relationships; does not interfere with activities of daily living Context:no major life stressors Associated Symptoms:denies homicidal ideations; no significant weight gain; no significant weight loss; no visual/auditory hallucinations; no delusions; no shortness of breath; mood good; no anxiety; no crying spells; no panic; no isolation; sleeping well; appetite good; energy good; no apathy; maintaining functionalityHypertensionReported bypatient.Onset/Timing:better Self Care:not under emotional stress Associated Symptoms:no shortness of breath; no fatigue; no palpitations; no decline in exercise capacity; no snoring Not Available [employer] 01/04/2021 22:37:30 022 text/ht ml Anxiety/DepressionReported bypatient.Quality:symptoms improved Severity:denies suicidal ideations; able to maintain relationships; does not interfere with activities of daily living Context:no major life stressors; father just moved to assisted living home and it's stressful Modifying Factors:medications as directed Associated Symptoms:denies homicidal ideations; no significant weight gain; no significant weight loss; no visual/auditory hallucinations; no delusions; no shortness of breath; mood good; no anxiety; no crying spells; no panic; no isolation; sleeping well; appetite good; energy good; no apathy; maintaining functionality;decreased energyHypertensionReported bypatient.Duration:has noted for years Onset/Timing:better Alleviating Factors:medication Self Care:not under emotional stress Associated Symptoms:no shortness of breath; no palpitations; no decline in exercise capacity; no snoring;fatigue Not Available [employer] 07/06/2021 21:37:45 023 text/ht ml Anxiety/DepressionReported bypatient.Quality:symptoms worse in the evening Severity:denies suicidal ideations; able to maintain relationships;interference with sleep Duration:symptoms lasting over 2 weeks Onset/Timing:still present; stable at this time Context:no major life stressors Associated Symptoms:denies homicidal ideations; no significant weight gain; no significant weight loss; no visual/auditory hallucinations; no delusions; no shortness of breathHypertensionReported bypatient.Duration:has noted for years Onset/Timing:better Alleviating Factors:medication Associated Symptoms:no shortness of breath; no fatigue; no palpitations; no decline in exercise capacity; no snoringNotes:now on amlodipine that was recently added , doing well. no c/o. Wellness PATRICIA Mobley [address] [facility], [facility] [address], [place], [id number], [employer] 10/05/2022 17:28:09 OBGyn Episode No OBEpisode recorded.
== END 2024-06-15 09:01 | disposition home or self-care (01) ==
LOC: CHSIMG 09:02
PROVIDERS: PCP Physician Assistant; Visit Provider Physician Assistant
DX: N64.4 Mastodynia (principal)
CPT/HCPCS: 77062; 77066; G0279